=== PATIENT | male | born 1980 | race African-American/Black ===

== ENCOUNTER 2020-11-11 | Emergency (ER) | payer OTHER | END 2020-11-11 19:28 | disposition left against medical advice (07) | DRG 730 | DX: N50.82 Scrotal pain (principal); Z91.19 Patient's noncompliance with other medical treatment and regimen ==

== ENCOUNTER 2021-04-08 06:07 | Day surgery (SDC) | payer OTHER ==
[2021-04-08] MEDS ORDERED: PERCOCET 5/325M1 TAB PO (09:07)
[2021-04-08 11:05] VITALS: BP 130/90
== END 2021-04-08 10:55 | DRG 712 ==
LOC: ORM 06:07
PROVIDERS: ATTEND Urology
PROC: 0VB60ZZ Excision of Right Tunica Vaginalis, Open Approach (ICD-10-PCS; principal; 2021-04-08)
DX: N43.3 Hydrocele, unspecified (principal); I86.1 Scrotal varices; N43.40 Spermatocele of epididymis, unspecified
CPT/HCPCS: J0131